=== PATIENT | female | born 2005 | race Caucasian/White ===

== ENCOUNTER 2025-05-18 07:04 | Inpatient (IN) | payer OTHER, MEDICAID ==
[2025-05-20 20:59] VITALS: BMI 45.1
[2025-05-20] MEDS ORDERED: Acetaminophen 500 MG TAB PO PRN (21:02)
[2025-05-20] MEDS ORDERED: Methylergonovine 0.2 MG/ML VIAL IM PRN (21:02)
[2025-05-20] MEDS ORDERED: HYDROcodone/Acetaminophen 5/325 mg Tablet PO PRN (21:02)
[2025-05-20] MEDS ORDERED: hydrALAZINE 20 MG/ML VIAL SLOW IVP PRN (21:02)
[2025-05-20] MEDS ORDERED: Ibuprofen 800 MG TAB PO PRN (21:02)
[2025-05-20] MEDS ORDERED: Tranexamic Acid 1,000 MG/10 ML VIAL IVP PRN (21:02)
[2025-05-20] MEDS ORDERED: Lidocaine 1% (PF) 30 ML VIAL SC PRN (21:02)
[2025-05-20] MEDS ORDERED: Ondansetron PF 4 MG/2 ML Vial IVP PRN ×2 (21:02→21:39)
[2025-05-20] MEDS ORDERED: Oxytocin 30 units/NS 500 ML 500 ML IV SCH (21:15)
[2025-05-20 21:47] LABS: Hematocrit 32.2 % (34.9-44.5); Hemoglobin 10.5 g/dL (12.0-15.5); Mean Corpuscular Hemoglobin 25.7 pg (27.0-33.0); Mean Corpuscular Volume 78.9 fL (81.6-98.3); Platelet Count 376 10x3/uL (150-450); Red Blood Cell (RBC) Count 4.08 10x6/uL (3.90-5.03); White Blood Cell (WBC) Count 10.15 10x3/uL (3.5-10.5)
[2025-05-20 22:20] LABS: Hep B Surf Ag - L&D Non-Reactive S/CO (NonReactive)
[2025-05-20 22:21] LABS: Syphilis Antibody Index 0.09 S/CO (<1.00 Non-Reactive)
[2025-05-21] MEDS: fentaNYL/Ropivacaine Epidural 100 ML ONE (12:53)
[2025-05-21] MEDS: Oxytocin 30 units/NS 500 ML 500 ML IV SCH (14:18)
[2025-05-21] MEDS ORDERED: Acetaminophen 325 MG TAB PO PRN (14:37)
[2025-05-21] MEDS ORDERED: diphenhydrAMINE 50 MG/ML VIAL IVP PRN ×2 (14:37→22:00)
[2025-05-21] MEDS ORDERED: Ondansetron PF 4 MG/2 ML Vial IVP PRN ×3 (14:37→22:00)
[2025-05-21] MEDS ORDERED: fentaNYL 2 mcg/Ropivacaine 0.2% Epidural 100 ML CADD EPIDURAL SCH (14:45)
[2025-05-21] MEDS ORDERED: Communication Order-Pharmacy FS SCH ×2 (14:45→22:00)
[2025-05-21] MEDS ORDERED: Famotidine/PF 20 mg/2ml Vial SLOW IVP PRN (21:31)
[2025-05-21] MEDS ORDERED: Bicitra 30 ML UDCUP PO PRN (21:31)
[2025-05-21] MEDS ORDERED: Azithromycin 500 MG in Sodium Chloride 0.9% 250 ML 250 ML IVPB SCH (21:45)
[2025-05-21] MEDS: Azithromycin 500 MG VIAL ONE (22:00)
[2025-05-21] MEDS ORDERED: HYDROmorphone 0.5 MG/0.5 ML SYRINGE SLOW IVP PRN (22:00)
[2025-05-21] MEDS ORDERED: Meperidine HCl/PF 25 MG (1 mL) VIAL SLOW IVP PRN (22:00)
[2025-05-21] MEDS: Carboprost 250 MCG/ML AMP IM PRN (22:21)
[2025-05-21] MEDS ORDERED: Ketorolac Tromethamine 30 MG (1 mL) VIAL IVP SCH (23:00)
[2025-05-21] MEDS: Diphenoxylate HCl/Atropine Tablet PO PRN (23:13)
[2025-05-22] MEDS: Ketorolac Tromethamine 30 MG (1 mL) VIAL IVP PRN (01:10)
[2025-05-22] MEDS ORDERED: Lanolin Ointment 7 GM TUBE TOP PRN (02:24)
[2025-05-22] MEDS ORDERED: Ondansetron PF 4 MG/2 ML Vial IVP PRN (02:24)
[2025-05-22] MEDS ORDERED: Bisacodyl 10 MG SUPP PR PRN (02:24)
[2025-05-22] MEDS ORDERED: hydrALAZINE 20 MG/ML VIAL SLOW IVP PRN (02:24)
[2025-05-22] MEDS: CEFAZOLIN 2 GM VIAL ONE (04:02)
[2025-05-22] MEDS: Dexamethasone 10 MG/ML VIAL ONE (04:02)
[2025-05-22] MEDS: Erythromycin Base 0.5% Oint 1 GM TUBE ONE (04:02)
[2025-05-22] MEDS: Lidocaine 2% MPF 10 ML AMP (For Epidural Use) ONE (04:02)
[2025-05-22] MEDS: Oxytocin 10 UNITS/ML VIAL ONE (04:06)
[2025-05-22] MEDS: Boostrix 0.5 ML (Tdap) VIAL (>/=7 yrs of age) IM ONE (04:07)
[2025-05-22 06:02] LABS: Hematocrit 33.0 % (34.9-44.5); Hemoglobin 10.5 g/dL (12.0-15.5); Mean Corpuscular Hemoglobin 25.5 pg (27.0-33.0); Mean Corpuscular Volume 80.1 fL (81.6-98.3); Platelet Count 359 10x3/uL (150-450); Red Blood Cell (RBC) Count 4.12 10x6/uL (3.90-5.03); White Blood Cell (WBC) Count 20.85 10x3/uL (3.5-10.5)
[2025-05-22] MEDS: Ketorolac Tromethamine 30 MG (1 mL) VIAL IVP SCH (06:09)
[2025-05-22] MEDS: Ferrous Sulfate 325 MG TAB PO SCH (07:36)
[2025-05-22] MEDS ORDERED: Meperidine HCl/PF 25 MG (1 mL) VIAL IM PRN (10:00)
[2025-05-22] MEDS: HYDROcodone/Acetaminophen 5/325 mg Tablet PO PRN (23:23)
[2025-05-22] MEDS: Ibuprofen 800 MG TAB PO SCH (23:24)
[2025-05-23] MEDS: Simethicone Chewable 80 MG TAB PO PRN (10:33)
[2025-05-23] MEDS: HYDROcodone/Acetaminophen 5/325 mg Tablet PO PRN (20:46)
[2025-05-24 09:31] VITALS: BP 114/63; TEMP 97.8
== END 2025-05-24 18:55 | disposition home or self-care (01) | DRG 788 ==
LOC: CSHLD 05-20 20:33 → UNDOADMIN 05-20 20:33 → CSHLD 05-20 21:04 → UNDOADMIN 05-21 22:12 → CSHLD 05-21 22:12 → CSHPP 05-22 01:40 → CSHLD 05-22 01:40
PROVIDERS: ADMIT Family Medicine; ATTEND Family Medicine
PROC: 10D00Z1 Extraction of Products of Conception, Low, Open Approach (ICD-10-PCS; principal; 2025-05-21)
DX: O99.214 Obesity complicating childbirth (principal); O48.0 Post-term pregnancy; O62.1 Secondary uterine inertia; E66.813 Obesity, class 3; O99.344 Other mental disorders complicating childbirth; F41.8 Other specified anxiety disorders; Z88.0 Allergy status to penicillin; Z37.0 Single live birth; Z3A.40 40 weeks gestation of pregnancy; Z88.8 Allergy status to other drugs, medicaments and biological substances
CPT/HCPCS: 36415; 51702; 85027; 86780; 86850; 86900; 86901; 87340; J0456; J0595; J1100; J1885; J2274; J2550; J2590; J3490; J7120